=== PATIENT | male | born 1955 | race Asian ===

== ENCOUNTER 2021-11-08 10:55 | Emergency (ER) | payer OTHER ==
[2021-11-08 13:23] LABS: HEMOGLOBIN 15.2 gm/dl (14.0-17.5); RED BLOOD COUNT 4.99 M/UL (4.20-5.50); WHITE BLOOD COUNT 7.5 K/UL (4.5-11.0)
[2021-11-08 13:47] LABS: BUN/CREATININE RATIO 13 (0-10)
[2021-11-08] MEDS ORDERED: ZADITOR5 ML OS (16:34)
[2021-11-08] MEDS ORDERED: LISINOPRIL10 MG PO (17:43)
== END 2021-11-08 18:21 | disposition home or self-care (01) ==
LOC: ER1 10:55
PROVIDERS: Physician Assistant
DX: R10.31 Right lower quadrant pain (principal); R10.11 Right upper quadrant pain; H57.12 Ocular pain, left eye; R91.1 Solitary pulmonary nodule; R10.811 Right upper quadrant abdominal tenderness; R10.813 Right lower quadrant abdominal tenderness
CPT/HCPCS: 80053; 81001; 83690; 85025; 99284; Q9967